=== PATIENT | female | born 1985 ===

== ENCOUNTER 2020-05-24 05:01 | Inpatient (IN) | payer BC ==
[2020-05-24] MEDS ORDERED: Methylergonovine 0.2 MG/1 ML Amp IM PRN (06:58)
[2020-05-24] MEDS ORDERED: Nalbuphine 10 MG/1 ML Vial IVPUSH PRN (06:58)
[2020-05-24] MEDS ORDERED: Tranexamic Acid 1,000 MG in Sodium Chloride 0.9% 100 ML IV PRN (06:58)
[2020-05-24] MEDS ORDERED: Butorphanol 1 MG/ML SDV IVPUSH PRN (06:58)
[2020-05-24] MEDS ORDERED: Sodium Chloride 0.9% 10 ML Syringe FLUSH PRN (06:58)
[2020-05-24] MEDS ORDERED: Carboprost Tromethamine 250 MCG/1 ML Amp IM PRN (06:58)
[2020-05-24] MEDS ORDERED: Misoprostol 200 MCG Tab PO PRN (06:58)
[2020-05-24] MEDS ORDERED: Water For Irrigation,Sterile 1,000 ML Container IRR PRN (06:58)
[2020-05-24] MEDS ORDERED: Lidocaine 1% 50 ML MDV INJECT PRN (06:58)
[2020-05-24] MEDS ORDERED: Sodium Chloride 0.9% 10 ML SDV IV PRN (06:58)
[2020-05-24] MEDS ORDERED: Sodium Chloride 0.9% 2.5 ML Syringe FLUSH PRN (06:58)
[2020-05-24] MEDS ORDERED: Oxytocin/0.9 % Sodium Chloride 30 UNIT/500 ML BAG IV SCH ×2 (07:00→08:00)
[2020-05-24] MEDS ORDERED: Terbutaline 1 MG/ML SDV SUBCUT PRN (07:57)
[2020-05-24] MEDS: Lactated Ringers 1,000 ML IV SCH ×2 (08:30→11:35)
[2020-05-24] MEDS ORDERED: Ropivacaine HCl/PF 100 ML ONE (11:02)
[2020-05-24] MEDS ORDERED: fentaNYL 100 MCG/2 ML SDV ONE (11:02)
--- NOTE | 2020-05-24 11:35 | PCM.PREANE ---
Preanesthetic Assessment - Anesthesia/Transfusion/Family Hx Anesthesia History: Prior Anesthesia Without Reaction Family History of Anesthesia Reaction: No Transfusion History: No Prior Transfusion(s) - Physical Assessment NPO Status Date: 05/24/20 NPO Status Time: 10:00 Height: 1.63 m Weight: 68.492 kg ASA Class: 1 - Lab Values: Laboratory Last Values WBC 9.59 K/uL (4.0-11.0) 05/24/20 06:10 RBC 3.94 M/uL (4.30-5.90) L 05/24/20 06:10 Hgb 12.3 g/dL (12.0-16.0) 05/24/20 06:10 Hct 36.7 % (36.0-46.0) 05/24/20 06:10 MCV 93.1 fL (80.0-98.0) 05/24/20 06:10 MCH 31.2 pg (27.0-32.0) 05/24/20 06:10 MCHC 33.5 g/dL (31.0-37.0) 05/24/20 06:10 RDW Std Deviation 46.9 fl (28.0-62.0) 05/24/20 06:10 RDW Coeff of Susie 14 % (11.0-15.0) 05/24/20 06:10 Plt Count 249 K/uL (150-400) 05/24/20 06:10 MPV 10.80 fL (7.40-12.00) 05/24/20 06:10 Nucleated RBC % 0.0 /100WBC 05/24/20 06:10 Nucleated RBCs # 0 K/uL 05/24/20 06:10 COVID-19 (AGATA) NEGATIVE (NEGATIVE) 05/24/20 05:20 Blood Type O POSITIVE 05/24/20 06:10 Antibody Screen NEGATIVE 05/24/20 06:10 - Allergies Allergies/Adverse Reactions: Allergies Allergy/AdvReac Type Severity Reaction Status Date / Time No Known Allergies Allergy Verified 05/22/20 12:05 - Acknowledgements Anesthesia Type Planned: Epidural Pt an Appropriate Candidate for the Planned Anesthesia: Yes Alternatives and Risks of Anesthesia Discussed w Pt/Guardian: Yes Pt/Guardian Understands and Agrees with Anesthesia Plan: Yes PreAnesthesia Questionnaire - Past Health History Medical/Surgical History: Denies 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: Psychiatric History: Reports: Depression Other Psychiatric History: In college - Infectious Disease History Infectious Disease History: Reports: Chicken Pox - Past Surgical History HEENT Surgical History: Reports: Oral Surgery Other Musculoskeletal Surgeries/Procedures:: skin biopsy - HOME MEDS Home Medications: Home Meds Pnv,Calcium 72/Iron/Folic Acid [ Plus Tablet] 1 tab PO DAILY 12/03/17 [History] Cholecalciferol (Vitamin D3) [Vitamin D3] 5,000 unit PO DAILY 05/14/20 [History] Iron 1 tab PO DAILY 05/14/20 [History] - CURRENT (IN HOUSE) MEDS Current Meds: Current Medications Butorphanol Tartrate (Stadol) 1 mg IVPUSH Q1H PRN PRN Reason: Pain Carboprost Tromethamine (Hemabate Ds) 250 mcg IM ASDIRECTED PRN PRN Reason: Post Hemorrhage Lactated Ringer's (Ringers, Lactated) 1,000 mls @ 150 mls/hr IV ASDIRECTED VIVIENNE Last Infusion: 05/24/20 11:00 Dose: 999 mls/hr Documented by: Oxytocin/Sodium Chloride (Oxytocin 30 Unit/500 Ml-Ns) 30 unit in 500 mls @ 999 mls/hr IV TITRATE VIVIENNE Tranexamic Acid 1,000 mg/ (Sodium Chloride) 110 mls @ 660 mls/hr IV ONETIME PRN PRN Reason: Bleeding Oxytocin/Sodium Chloride (Oxytocin 30 Unit/500 Ml-Ns) 30 unit in 500 mls @ 2 mls/hr IV TITRATE VIVIENNE; Protocol Last Titration: 05/24/20 09:27 Dose: 4 munits/min, 4 mls/hr Documented by: Lidocaine HCl (Xylocaine 1%) 50 ml INJECT ONETIME PRN PRN Reason: Laceration repair Methylergonovine Maleate (Methergine) 0.2 mg IM ASDIRECTED PRN PRN Reason: Post Hemorrhage Misoprostol (Cytotec) 200 mcg PO ONETIME PRN PRN Reason: Post Hemorrhage Nalbuphine HCl (Nubain) 10 mg IVPUSH Q1H PRN PRN Reason: Pain (severe 7-10) Sodium Chloride (Saline Flush) 10 ml FLUSH ASDIRECTED PRN PRN Reason: Keep Vein Open Sodium Chloride (Saline Flush) 2.5 ml FLUSH ASDIRECTED PRN PRN Reason: Keep Vein Open Sodium Chloride (Normal Saline) 10 ml IV ASDIRECTED PRN PRN Reason: IV Use Sterile Water (Sterile Water For Irrigation) 1,000 ml IRR ASDIRECTED PRN PRN Reason: delivery Terbutaline Sulfate (Brethine) 0.25 mg SUBCUT ASDIRECTED PRN PRN Reason: Tacysystole Discontinued Medications Fentanyl (Sublimaze) Confirm Administered Dose 100 mcg .ROUTE .STK-MED ONE Stop: 05/24/20 11:03 Ropivacaine (Naropin 0.2%) Confirm Administered Dose 100 mls @ as directed .ROUTE .STK-MED ONE Stop: 05/24/20 11:03
--- NOTE | 2020-05-24 11:41 | PCM.PRNOTE ---
- Free Text/Narrative Note: Anes NOte Patietn requests epidural for L&D. Nnamdi reports a history of sciatica with pain radiating down the left leg. She reports continued pain donw left leg after previous vag delivery with epidural analgesia. I have advised her she will probably again have these symptoms after deliver. She understands and wishes to proceed. itting position, Level L3-L4 midline approach. Sterile technique. Chloraprep scrub to lumbar area. Sterile fenestrated drape applied. Epidural space easily achieved single attempt with ease using MITRA technique. MITRA at 2 cm depth. Cath threaded 5 cm with ease. Cath secured a tskin at 8 cm using sterile clear adhesive dressing. Test 1125 3 cc 1.5% lido with epi negative. Load 1128 10 cc 0.2% ropiviiane with 1 mcg cc fentanyl in slow divided doses. Pump started at 1136 with 90 cc same solution. Rate is 8 cc hr with 6 cc q 20 min prn bolus. Adrienne well. Time with patient [phone] Geoffrey Campos CRNA
--- NOTE | 2020-05-24 14:15 | PCM.DEL ---
L & D Note - General Info Date of Service: 05/24/20 Mother's Due Date: 05/31/20 - Delivery Note Labor: Spontaneous, Augmented by ARM, Induced by Oxytocin Delivery Outcome: Livebirth Delivery Method: Spontaneous Vaginal Delivery-Single Delivery Mode: Spontaneous Presentation: Vertex Nuchal Cord: None Anesthesia Type: Epidural Amniotic Fluid Description: Clear Episiotomy Type: None Laceration: None Placenta: Intact, Spontaneous Cord: 3 Vessels Estimated Blood Loss: 150 Resuscitation Needed: No Score 1 min: 8 Score 5 min: 8 Second Stage Interventions: Reports: Pushing, Pulls Own Legs Back Delivery Comments (Free Text/Narrative):: of viable male. Head delivered with good pushing, shoulders and body followed easily. Spont cry. Infant placed on mothers abdomen with Rn at for evaluation. Delayed cord clamping. Pitocin to IVF. Cord clamped and cord blood collected. Placenta delivered grossly intact. Inspection noted intact perineum. EBL 150cc. APGARS 8/8, Wt: 8lb 1oz. Stable - General Info Date of Service: 05/24/20 Functional Status: Reports: Pain Controlled - Review of Systems General: Reports: No Symptoms HEENT: Reports: No Symptoms Pulmonary: Reports: No Symptoms Cardiovascular: Reports: No Symptoms Gastrointestinal: Reports: No Symptoms Genitourinary: Reports: No Symptoms Musculoskeletal: Reports: No Symptoms Skin: Reports: No Symptoms Neurological: Reports: No Symptoms Psychiatric: Reports: No Symptoms - Patient Data Weight - Most Recent: 68.492 kg Lab Results Last 24 Hours: Laboratory Results - last 24 hr 05/24/20 05/24/20 05/24/20 Range/Units 05:20 06:10 06:10 WBC 9.59 (4.0-11.0) K/uL RBC 3.94 L (4.30-5.90) M/uL Hgb 12.3 (12.0-16.0) g/dL Hct 36.7 (36.0-46.0) % MCV 93.1 (80.0-98.0) fL MCH 31.2 (27.0-32.0) pg MCHC 33.5 (31.0-37.0) g/dL RDW Std Deviation 46.9 (28.0-62.0) fl RDW Coeff of Susie 14 (11.0-15.0) % Plt Count 249 (150-400) K/uL MPV 10.80 (7.40-12.00) fL Nucleated RBC % 0.0 /100WBC Nucleated RBCs # 0 K/uL COVID-19 (AGATA) NEGATIVE (NEGATIVE) Blood Type O POSITIVE Antibody Screen NEGATIVE Med Orders - Current: Current Medications Butorphanol Tartrate (Stadol) 1 mg IVPUSH Q1H PRN PRN Reason: Pain Carboprost Tromethamine (Hemabate Ds) 250 mcg IM ASDIRECTED PRN PRN Reason: Post Hemorrhage Lactated Ringer's (Ringers, Lactated) 1,000 mls @ 150 mls/hr IV ASDIRECTED VIVIENNE Last Infusion: 05/24/20 12:05 Dose: 150 mls/hr Documented by: Oxytocin/Sodium Chloride (Oxytocin 30 Unit/500 Ml-Ns) 30 unit in 500 mls @ 999 mls/hr IV TITRATE VIVIENNE Tranexamic Acid 1,000 mg/ (Sodium Chloride) 110 mls @ 660 mls/hr IV ONETIME PRN PRN Reason: Bleeding Oxytocin/Sodium Chloride (Oxytocin 30 Unit/500 Ml-Ns) 30 unit in 500 mls @ 2 mls/hr IV TITRATE VIVIENNE; Protocol Last Titration: 05/24/20 13:30 Dose: 8 munits/min, 8 mls/hr Documented by: Lidocaine HCl (Xylocaine 1%) 50 ml INJECT ONETIME PRN PRN Reason: Laceration repair Methylergonovine Maleate (Methergine) 0.2 mg IM ASDIRECTED PRN PRN Reason: Post Hemorrhage Misoprostol (Cytotec) 200 mcg PO ONETIME PRN PRN Reason: Post Hemorrhage Nalbuphine HCl (Nubain) 10 mg IVPUSH Q1H PRN PRN Reason: Pain (severe 7-10) Sodium Chloride (Saline Flush) 10 ml FLUSH ASDIRECTED PRN PRN Reason: Keep Vein Open Sodium Chloride (Saline Flush) 2.5 ml FLUSH ASDIRECTED PRN PRN Reason: Keep Vein Open Sodium Chloride (Normal Saline) 10 ml IV ASDIRECTED PRN PRN Reason: IV Use Sterile Water (Sterile Water For Irrigation) 1,000 ml IRR ASDIRECTED PRN PRN Reason: delivery Terbutaline Sulfate (Brethine) 0.25 mg SUBCUT ASDIRECTED PRN PRN Reason: Tacysystole Discontinued Medications Fentanyl (Sublimaze) Confirm Administered Dose 100 mcg .ROUTE .STK-MED ONE Stop: 05/24/20 11:03 Ropivacaine (Naropin 0.2%) Confirm Administered Dose 100 mls @ as directed .ROUTE .STK-MED ONE Stop: 05/24/20 11:03 - Exam General: Alert, Oriented, Cooperative, No Acute Distress Lungs: Normal Respiratory Effort GI/Abdominal Exam: Soft, No Distention, Pelvis Stable (Female) Exam: Normal External Exam, Normal Bimanual Exam, Vaginal Bleeding. No: Cervical Lesions, Vaginal Lesions, Vaginal Tears Back Exam: Normal Inspection Extremities: Normal Inspection, Non-Tender, No Pedal Edema Skin: Warm, Dry, Intact Wound/Incisions: Healing Well Neurological: No New Focal Deficit, Normal Speech, Normal Tone, Sensation Intact Psy/Mental Status: Alert, Normal Affect, Normal Mood - Problem List & Annotations (1) Supervision of normal IUP (intrauterine ) in multigravida SNOMED Code(s): 308655587, 270100266, 163759205 Code(s): Z34.80 - ENCOUNTER FOR SUPRVSN OF NORMAL , UNSP TRIMESTER Status: Acute Current Visit: Yes Qualifiers: Trimester: third trimester Qualified Code(s): Z34.83 - Encounter for supervision of other normal , third trimester (2) (normal spontaneous vaginal delivery) SNOMED Code(s): 27894555, 609236810 Code(s): O80 - ENCOUNTER FOR FULL-TERM UNCOMPLICATED DELIVERY Status: Acute Priority: High Current Visit: Yes - Problem List Review Problem List Initiated/Reviewed/Updated: Yes - My Orders Last 24 Hours: My Active Orders 05/24/20 05:20 Patient Status [ADT] Routine Non Stress Test [RC] PER UNIT ROUTINE Up ad Johanna [RC] ASDIRECTED Vaginal Exam [RC] Click to Edit Vital Signs [RC] PER UNIT ROUTINE Resuscitation Status Routine 05/24/20 07:57 Bedrest Bathroom Privileges [RC] ASDIRECTED Communication Order [RC] ASDIRECTED Communication Order [RC] ASDIRECTED Communication Order [RC] ASDIRECTED Notify Provider [RC] PRN Notify Provider [RC] STAT Vaginal Exam [RC] PRN Terbutaline [Brethine] 0.25 mg SUBCUT ASDIRECTED PRN 05/24/20 08:00 Oxytocin/0.9 % Sodium Chloride [Oxytocin 30 Unit/500 ML-NS] 30 unit in 500 ml IV TITRATE - Plan Plan:: IOL A: 34yo EDC 05/31/2020 39 0/7wks, O+, RI, GBS pos. IOL due to GDMA1 diet controlled. P: Pitocin, epidural prn, anticipate . Dr Quiroz updated Delivery A: viable male. APGARS 8/8, Wt: 8lb 1oz. Intact, EBL 150cc. Stable P: Routine pp plan of care
--- NOTE | 2020-05-24 14:17 | PCM.LDHP ---
L&D History of Present Illness - General Date of Service: 05/24/20 Admit Problem/Dx: Patient Status Order with Admit Dx/Problem 05/24/20 05:20 Patient Status [ADT] Routine Admission Diagnosis/Problem Admission Diagnosis/Problem 05/24/20 14:15 34yo EDC 05/31/2020 39 0/7wks. O+, RI, GBS neg. IOL due to GDMA1 Source of Information: Patient History Limitations: Reports: No Limitations - History of Present Illness Improves with: Reports: None Worsens with: Reports: None Associated Symptoms: Reports: N - Related Data Allergies/Adverse Reactions: Allergies Allergy/AdvReac Type Severity Reaction Status Date / Time No Known Allergies Allergy Verified 05/22/20 12:05 Home Medications: Home Meds Pnv,Calcium 72/Iron/Folic Acid [ Plus Tablet] 1 tab PO DAILY 12/03/17 [History] Cholecalciferol (Vitamin D3) [Vitamin D3] 5,000 unit PO DAILY 05/14/20 [History] Iron 1 tab PO DAILY 05/14/20 [History] Past Medical History - Past Health History Medical/Surgical History: Denies 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: Psychiatric History: Reports: Depression Other Psychiatric History: In college - Infectious Disease History Infectious Disease History: Reports: Chicken Pox - Past Surgical History HEENT Surgical History: Reports: Oral Surgery Other Musculoskeletal Surgeries/Procedures:: skin biopsy Social & Family History - Family History Family Medical History: Noncontributory - Caffeine Use Caffeine Use: Reports: None H&P Review of Systems - Review of Systems: Review Of Systems: See Below General: Reports: No Symptoms HEENT: Reports: No Symptoms Pulmonary: Reports: No Symptoms Cardiovascular: Reports: No Symptoms Gastrointestinal: Reports: No Symptoms Genitourinary: Reports: No Symptoms Musculoskeletal: Reports: No Symptoms Skin: Reports: No Symptoms Psychiatric: Reports: No Symptoms Neurological: Reports: No Symptoms Hematologic/Lymphatic: Reports: No Symptoms Immunologic: Reports: No Symptoms L&D Exam - Exam Exam: See Below - Vital Signs Weight: 68.492 kg - OB Specific Contraction Intensity: Mild Movement: Active Heart Tones: Present Presentation: Vertex - Demarco Score Demarco Score Cervix Position: Posterior Demarco Score Consistency: Soft Demarco Score Effacement: 51-70% Demarco Score Dilation: 3-4 cm Demarco Score 's Station: -2 Demarco Score Total: 7 - Exam General: Alert, Oriented, Cooperative HEENT: Hearing Intact Lungs: Clear to Auscultation, Normal Respiratory Effort Cardiovascular: Regular Rate, Regular Rhythm GI/Abdominal Exam: Soft, Pelvis Stable Rectal Exam: Deferred Genitourinary: Normal external exam, Normal bimanual exam, Cervical dilitation. No: Cervical fluid, Vaginal bleeding Back Exam: Normal Inspection, Full Range of Motion Extremities: Normal Inspection, Normal Range of Motion, Non-Tender, No Pedal Edema Skin: Warm, Dry, Intact Neurological: Cranial Nerves Intact, Strength Equal Bilateral, Normal Gait, Normal Speech, Normal Tone, Sensation Intact Psychiatric: Alert, Normal Affect, Normal Mood - Patient Data Lab Results Last 24 hrs: Laboratory Results - last 24 hr 05/24/20 05/24/20 05/24/20 Range/Units 05:20 06:10 06:10 WBC 9.59 (4.0-11.0) K/uL RBC 3.94 L (4.30-5.90) M/uL Hgb 12.3 (12.0-16.0) g/dL Hct 36.7 (36.0-46.0) % MCV 93.1 (80.0-98.0) fL MCH 31.2 (27.0-32.0) pg MCHC 33.5 (31.0-37.0) g/dL RDW Std Deviation 46.9 (28.0-62.0) fl RDW Coeff of Susie 14 (11.0-15.0) % Plt Count 249 (150-400) K/uL MPV 10.80 (7.40-12.00) fL Nucleated RBC % 0.0 /100WBC Nucleated RBCs # 0 K/uL COVID-19 (AGTAA) NEGATIVE (NEGATIVE) Blood Type O POSITIVE Antibody Screen NEGATIVE Result Diagrams: 05/24/20 06:10 - Problem List (1) Supervision of normal IUP (intrauterine ) in multigravida SNOMED Code(s): 423513484, 260717434, 377495695 ICD Code: Z34.80 - ENCOUNTER FOR SUPRVSN OF NORMAL , UNSP TRIMESTER Status: Acute Current Visit: Yes Qualifiers: Trimester: third trimester Qualified Code(s): Z34.83 - Encounter for supervision of other normal , third trimester (2) (normal spontaneous vaginal delivery) SNOMED Code(s): 72077478, 083126904 ICD Code: O80 - ENCOUNTER FOR FULL-TERM UNCOMPLICATED DELIVERY Status: Acute Priority: High Current Visit: Yes Problem List Initiated/Reviewed/Updated: Yes Orders Last 24hrs: Active Orders 24 hr Category Date Time Status Patient Status [ADT] Routine ADT 05/24/20 05:20 Active Bedrest Bathroom Privileges [RC] ASDIRECTED Care 05/24/20 07:57 Active Communication Order [RC] ASDIRECTED Care 05/24/20 07:57 Active Communication Order [RC] ASDIRECTED Care 05/24/20 07:57 Active Communication Order [RC] ASDIRECTED Care 05/24/20 07:57 Active Heart Tones [RC] CONTINUOUS Care 05/24/20 06:58 Active Non Stress Test [RC] PER UNIT ROUTINE Care 05/24/20 05:20 Active May Shower [RC] ASDIRECTED Care 05/24/20 06:58 Active Notify Provider [RC] PRN Care 05/24/20 06:58 Active Notify Provider [RC] PRN Care 05/24/20 07:57 Active Notify Provider [RC] STAT Care 05/24/20 07:57 Active Up ad Johanna [RC] ASDIRECTED Care 05/24/20 05:20 Active Vaginal Exam [RC] Click to Edit Care 05/24/20 05:20 Active Vaginal Exam [RC] PRN Care 05/24/20 07:57 Active Vital Signs [RC] PER UNIT ROUTINE Care 05/24/20 05:20 Active RPR (SYPHILIS SERO) W/ RFLX [REF] Routine Lab 05/24/20 06:10 Received Butorphanol [Stadol] Med 05/24/20 06:58 Active 1 mg IVPUSH Q1H PRN Carboprost Tromethamine [Hemabate DS] Med 05/24/20 06:58 Active 250 mcg IM ASDIRECTED PRN Lactated Ringers [Ringers, Lactated] 1,000 ml Med 05/24/20 07:00 Active IV ASDIRECTED Lidocaine 1% [Xylocaine 1%] Med 05/24/20 06:58 Active 50 ml INJECT ONETIME PRN Methylergonovine [Methergine] Med 05/24/20 06:58 Active 0.2 mg IM ASDIRECTED PRN Nalbuphine [Nubain] Med 05/24/20 06:58 Active 10 mg IVPUSH Q1H PRN Oxytocin/0.9 % Sodium Chloride [Oxytocin 30 Unit/500 ML Med 05/24/20 07:00 Active -NS] 30 unit in 500 ml IV TITRATE Oxytocin/0.9 % Sodium Chloride [Oxytocin 30 Unit/500 ML Med 05/24/20 08:00 Active -NS] 30 unit in 500 ml IV TITRATE Sodium Chloride 0.9% [Normal Saline] Med 05/24/20 06:58 Active 10 ml IV ASDIRECTED PRN Sodium Chloride 0.9% [Saline Flush] Med 05/24/20 06:58 Active 10 ml FLUSH ASDIRECTED PRN Sodium Chloride 0.9% [Saline Flush] Med 05/24/20 06:58 Active 2.5 ml FLUSH ASDIRECTED PRN Terbutaline [Brethine] Med 05/24/20 07:57 Active 0.25 mg SUBCUT ASDIRECTED PRN Tranexamic Acid [Cyklokapron] 1,000 mg Med 05/24/20 06:58 Active Sodium Chloride 0.9% [Normal Saline] 100 ml IV ONETIME Water For Irrigation,Sterile [Sterile Water for Med 05/24/20 06:58 Active Irrigation] 1,000 ml IRR ASDIRECTED PRN miSOPROStoL [Cytotec] Med 05/24/20 06:58 Active 200 mcg PO ONETIME PRN Scalp Electrode [WOMSER] Per Unit Routine Oth 05/24/20 06:58 Ordered Peripheral IV Insertion Adult [OM.PC] Routine Oth 05/24/20 06:58 Ordered Resuscitation Status Routine Resus Stat 05/24/20 05:20 Ordered Medication Orders Butorphanol Tartrate (Stadol) 1 mg IVPUSH Q1H PRN PRN Reason: Pain Carboprost Tromethamine (Hemabate Ds) 250 mcg IM ASDIRECTED PRN PRN Reason: Post Hemorrhage Lactated Ringer's (Ringers, Lactated) 1,000 mls @ 150 mls/hr IV ASDIRECTED VIVIENNE Last Infusion: 05/24/20 12:05 Dose: 150 mls/hr Documented by: Admin: 05/24/20 11:35 Dose: 999 mls/hr Documented by: Infusion: 05/24/20 11:35 Dose: 999 mls/hr Documented by: Infusion: 05/24/20 11:00 Dose: 999 mls/hr Documented by: Admin: 05/24/20 08:30 Dose: 150 mls/hr Documented by: HE Oxytocin/Sodium Chloride (Oxytocin 30 Unit/500 Ml-Ns) 30 unit in 500 mls @ 999 mls/hr IV TITRATE VIVIENNE Tranexamic Acid 1,000 mg/ (Sodium Chloride) 110 mls @ 660 mls/hr IV ONETIME PRN PRN Reason: Bleeding Oxytocin/Sodium Chloride (Oxytocin 30 Unit/500 Ml-Ns) 30 unit in 500 mls @ 2 mls/hr IV TITRATE VIVIENNE; Protocol Last Titration: 05/24/20 13:30 Dose: 8 munits/min, 8 mls/hr Documented by: Titration: 05/24/20 12:36 Dose: 6 munits/min, 6 mls/hr Documented by: Titration: 05/24/20 09:27 Dose: 4 munits/min, 4 mls/hr Documented by: Admin: 05/24/20 08:35 Dose: 2 munits/min, 2 mls/hr Documented by: HE Lidocaine HCl (Xylocaine 1%) 50 ml INJECT ONETIME PRN PRN Reason: Laceration repair Methylergonovine Maleate (Methergine) 0.2 mg IM ASDIRECTED PRN PRN Reason: Post Hemorrhage Misoprostol (Cytotec) 200 mcg PO ONETIME PRN PRN Reason: Post Hemorrhage Nalbuphine HCl (Nubain) 10 mg IVPUSH Q1H PRN PRN Reason: Pain (severe 7-10) Sodium Chloride (Saline Flush) 10 ml FLUSH ASDIRECTED PRN PRN Reason: Keep Vein Open Sodium Chloride (Saline Flush) 2.5 ml FLUSH ASDIRECTED PRN PRN Reason: Keep Vein Open Sodium Chloride (Normal Saline) 10 ml IV ASDIRECTED PRN PRN Reason: IV Use Sterile Water (Sterile Water For Irrigation) 1,000 ml IRR ASDIRECTED PRN PRN Reason: delivery Terbutaline Sulfate (Brethine) 0.25 mg SUBCUT ASDIRECTED PRN PRN Reason: Tacysystole Assessment/Plan Comment:: IOL A: 34yo EDC 05/31/2020 39 0/7wks, O+, RI, GBS pos. IOL due to GDMA1 diet controlled. P: Pitocin, epidural prn, anticipate . Dr Quiroz updated Delivery A: viable male. APGARS 8/8, Wt: 8lb 1oz. Intact, EBL 150cc. Stable P: Routine pp plan of care
[2020-05-24] MEDS ORDERED: Benzocaine/Menthol 20%-0.5% Spray 78 GM Cannister TOP PRN (14:18)
[2020-05-24] MEDS ORDERED: Acetaminophen 500 MG Tab PO PRN ×2 (14:18)
[2020-05-24] MEDS ORDERED: Bisacodyl 10 MG Supp RECTAL PRN (14:18)
[2020-05-24] MEDS ORDERED: Ibuprofen 400 MG Tab PO PRN (14:18)
[2020-05-24] MEDS ORDERED: Lanolin 100% Cream 7 GM Tube TOP PRN (14:18)
[2020-05-24] MEDS ORDERED: Docusate Sodium 100 MG Cap PO PRN (14:18)
[2020-05-24] MEDS ORDERED: Witch Hazel Medicated Pads 40/Jar TOP PRN (14:18)
[2020-05-24] MEDS ORDERED: Ibuprofen 800 MG Tab PO PRN (14:18)
[2020-05-24] MEDS ORDERED: oxyCODONE 5 MG Tab PO PRN (14:18)
--- NOTE | 2020-05-25 07:53 | PCM48HPAN ---
Post Anesthesia Note - EVALUATION WITHIN 48HRS OF ANESTHETIC Vital Signs in Normal Range: Yes Patient Participated in Evaluation: Yes Respiratory Function Stable: Yes Airway Patent: Yes Cardiovascular Function Stable: Yes Hydration Status Stable: Yes Pain Control Satisfactory: Yes Nausea and Vomiting Control Satisfactory: Yes Mental Status Recovered: Yes Vital Signs: Last Vital Signs Temp 36.4 C 05/25/20 04:20 Pulse 86 05/25/20 04:20 Resp 14 05/25/20 04:20 BP 109/71 05/25/20 04:20 Pulse Ox 98 05/25/20 04:20 - COMMENTS/OBSERVATIONS Free Text/Narrative:: Pt resting in bed, reports 3/10 pain with adequate pain control, ambulated without difficulty overnight, reports full return of sensation and strength to BLE.
--- NOTE | 2020-05-25 08:17 | PCM.DCSUM1 ---
Discharge Summary - Hospital Course Free Text/Narrative:: Discharge home with baby. Follow up in the clinic in 6 weeks for routine visit. Diagnosis: Stroke: No Modified [place] Scale: No Symptoms at All Modified [place] Scale Score: 0 - Discharge Data Discharge Date: 05/25/20 Discharge Disposition: Home, Self-Care 01 Condition: Good - Referral to Home Health Primary Care Physician: PCP None - Patient Instructions Diet: Regular Diet as Tolerated, Drink 8-10+ Glasses/Day Activity: As Tolerated, No Strenuous Activities, Rest and Relax Today Driving: May Drive Today Showering/Bathing: May Shower Notify Provider of: Fever, Increased Pain, Swelling and Redness, Drainage, Nausea and/or Vomiting - Discharge Plan *PRESCRIPTION DRUG MONITORING PROGRAM REVIEWED*: Not Applicable *COPY OF PRESCRIPTION DRUG MONITORING REPORT IN PATIENT AVERY: Not Applicable Prescriptions/Med Rec: Ibuprofen [Motrin] 800 mg PO Q6H PRN #90 tablet PRN Reason: Pain Home Medications: Home Meds Pnv,Calcium 72/Iron/Folic Acid [ Plus Tablet] 1 tab PO DAILY 12/03/17 [History] Cholecalciferol (Vitamin D3) [Vitamin D3] 5,000 unit PO DAILY 05/14/20 [History] Iron 1 tab PO DAILY 05/14/20 [History] Ibuprofen [Motrin] 800 mg PO Q6H PRN #90 tablet 05/25/20 [Rx] Oxygen Therapy Mode: Room Air - Discharge Summary/Plan Comment DC Time >30 min.: Yes - General Info Date of Service: 05/25/20 Admission Dx/Problem (Free Text: Patient Status Order with Admit Dx/Problem 05/24/20 05:20 Patient Status [ADT] Routine Admission Diagnosis/Problem Admission Diagnosis/Problem 05/24/20 14:15 34yo EDC 05/31/2020 39 0/7wks. O+, RI, GBS neg. IOL due to GDMA1 Functional Status: Reports: Pain Controlled, Tolerating Diet, Ambulating, Urinating - Review of Systems General: Reports: No Symptoms HEENT: Reports: No Symptoms Pulmonary: Reports: No Symptoms Cardiovascular: Reports: No Symptoms Gastrointestinal: Reports: No Symptoms Genitourinary: Reports: No Symptoms Musculoskeletal: Reports: No Symptoms Skin: Reports: No Symptoms Neurological: Reports: No Symptoms Psychiatric: Reports: No Symptoms - Patient Data Vitals - Most Recent: Last Vital Signs Temp 97.5 F 05/25/20 04:20 Pulse 86 05/25/20 04:20 Resp 14 05/25/20 04:20 BP 109/71 05/25/20 04:20 Pulse Ox 98 05/25/20 04:20 Weight - Most Recent: 151 lb Med Orders - Current: Current Medications Acetaminophen (Tylenol Extra Strength) 500 mg PO Q4H PRN PRN Reason: Pain Acetaminophen (Tylenol Extra Strength) 1,000 mg PO Q4H PRN PRN Reason: Pain Benzocaine/Menthol (Dermoplast Pain Relief 20%-0.5% [place]) 78 gm TOP ASDIRECTED PRN PRN Reason: Perineal Comfort Measure Bisacodyl (Dulcolax) 10 mg RECTAL ONETIME PRN PRN Reason: Constipation Docusate Sodium (Colace) 100 mg PO BID PRN PRN Reason: Constipation Emollient Ointment (Lansinoh Hpa) 0 gm TOP ASDIRECTED PRN PRN Reason: Sore Nipples Ibuprofen (Motrin) 400 mg PO Q4H PRN PRN Reason: Pain Ibuprofen (Motrin) 800 mg PO Q6H PRN PRN Reason: Pain Oxycodone HCl (Oxycodone) 5 mg PO Q2H PRN PRN Reason: Pain Witch [place] (Tucks) 1 pad TOP ASDIRECTED PRN PRN Reason: comfort care Discontinued Medications Butorphanol Tartrate (Stadol) 1 mg IVPUSH Q1H PRN PRN Reason: Pain Carboprost Tromethamine (Hemabate Ds) 250 mcg IM ASDIRECTED PRN PRN Reason: Post Hemorrhage Fentanyl (Sublimaze) Confirm Administered Dose 100 mcg .ROUTE .STK-MED ONE Stop: 05/24/20 11:03 Lactated Ringer's (Ringers, Lactated) 1,000 mls @ 150 mls/hr IV ASDIRECTED [facility] Last Infusion: 05/24/20 12:05 Dose: 150 mls/hr Documented by: Oxytocin/Sodium Chloride (Oxytocin 30 Unit/500 Ml-Ns) 30 unit in 500 mls @ 999 mls/hr IV TITRATE VIVIENNE Tranexamic Acid 1,000 mg/ (Sodium Chloride) 110 mls @ 660 mls/hr IV ONETIME PRN PRN Reason: Bleeding Oxytocin/Sodium Chloride (Oxytocin 30 Unit/500 Ml-Ns) 30 unit in 500 mls @ 2 mls/hr IV TITRATE VIVIENNE; Protocol Last Titration: 05/24/20 13:30 Dose: 8 munits/min, 8 mls/hr Documented by: Ropivacaine (Naropin 0.2%) Confirm Administered Dose 100 mls @ as directed .ROUTE .STK-MED ONE Stop: 05/24/20 11:03 Lidocaine HCl (Xylocaine 1%) 50 ml INJECT ONETIME PRN PRN Reason: Laceration repair Methylergonovine Maleate (Methergine) 0.2 mg IM ASDIRECTED PRN PRN Reason: Post Hemorrhage Misoprostol (Cytotec) 200 mcg PO ONETIME PRN PRN Reason: Post Hemorrhage Nalbuphine HCl (Nubain) 10 mg IVPUSH Q1H PRN PRN Reason: Pain (severe 7-10) Sodium Chloride (Saline Flush) 10 ml FLUSH ASDIRECTED PRN PRN Reason: Keep Vein Open Sodium Chloride (Saline Flush) 2.5 ml FLUSH ASDIRECTED PRN PRN Reason: Keep Vein Open Sodium Chloride (Normal Saline) 10 ml IV ASDIRECTED PRN PRN Reason: IV Use Sterile Water (Sterile Water For Irrigation) 1,000 ml IRR ASDIRECTED PRN PRN Reason: delivery Terbutaline Sulfate (Brethine) 0.25 mg SUBCUT ASDIRECTED PRN PRN Reason: Tacysystole - Exam General: Reports: Alert, Oriented, Cooperative, No Acute Distress Neck: Reports: Supple, Trachea Midline Lungs: Reports: Clear to Auscultation, Normal Respiratory Effort Cardiovascular: Reports: Regular Rate, Regular Rhythm GI/Abdominal Exam: Soft, Non-Tender (Female) Exam: Deferred Rectal (Female) Exam: Deferred Back Exam: Reports: Normal Inspection, Full Range of Motion Extremities: Normal Inspection, Normal Range of Motion, Non-Tender, Normal Capillary Refill Skin: Reports: Warm, Dry, Intact Neurological: Reports: No New Focal Deficit, Normal Gait, Normal Speech, Normal Tone, Sensation Intact Psy/Mental Status: Reports: Alert, Normal Affect, Normal Mood
== END 2020-05-25 16:36 | disposition home or self-care (01) | DRG 560 ==
LOC: MW.OB 05:01 → MW.OBCHECK 05:01 → MW.OB 05:20 → MW.OBCHECK 05:20 → OBSVTOIN 13:54 → MW.OB 20:13
PROVIDERS: ADMIT Obstetrics & Gynecology; ATTEND Obstetrics & Gynecology
PROC: 10E0XZZ Delivery of Products of Conception, External Approach (ICD-10-PCS; principal; 2020-05-24)
DX: O24.420 Gestational diabetes mellitus in childbirth, diet controlled (principal); Z3A.39 39 weeks gestation of pregnancy; Z37.0 Single live birth; Z20.828 Contact with and (suspected) exposure to other viral communicable diseases
CPT/HCPCS: 01967; 36415; 51702; 59025; 59409; 85027; 86592; 86593; 86780; 86850; 86900; 86901; J2590; J7120; U0002